=== PATIENT | male | born 1970 ===

== ENCOUNTER 2018-03-07 16:08 | Emergency (ER) | payer BC ==
[2018-03-07] MEDS ORDERED: Tetan/Diph/Pertus SYR(Tdap)* 0.5 ML SYR(BOOSTRIX) use SYR IM ONE (17:50)
[2018-03-07 17:57] LABS: ABS Basophils 0.1 10^3/ul (0-0.2); ABS Eosinophils 0.1 10^3/ul (0-0.6); ABS Lymphocytes 1.8 10^3/ul (1.0-4.8); ABS Monocytes 0.5 10^3/ul (0-0.8); ABS Neutrophils 7.6 10^3/ul (1.5-7.7); ABS Nucleated RBC 0 10^3/ul; Eosinophil % 0.7 % (0-6); Hematocrit 45 % (42-52); Hemoglobin 15.6 g/dl (14.0-18.0); Lymphocyte % 18.1 % (25-47); Mean Corpuscular HGB Conc 35 g/dl (31-36); Mean Corpuscular Hemoglobin 31 pg (27-31); Mean Corpuscular Volume 89 fL (80-94); Mean Platelet Volume 7.4 um3 (7.4-10.4); Nucleated Red Blood Cells % 0; Platelet Count 262 10^3/ul (150-450); Red Blood Count 5.02 10^6/ul (4.00-5.40); Red Cell Distribution Width 13 % (10.5-15)
[2018-03-07 18:10] LABS: EGFR Non-African American 76.5 (>60)
--- NOTE | 2018-03-07 18:43 | ED ---
- HPI Summary HPI Summary: 47 year old male presents with potential needlestick exposure today. He states he is clean area an airBNB and there was a needle on the floor. He states he did not realize is needle and threw it down the stairs. He states he went to pick it up and it broke in half and it stabbed him in his left palm. He states it did not draw blood. He states it was an insulin needle. He states there was no blood drawn after he got struck. He was unsure if there was blood previous on the bevel. He has no medical conditions. - History of Current Complaint Chief Complaint: EDExposureBodyFluid Stated Complaint: EXPOSURE Time Seen by Provider: 03/07/18 17:30 PMH/Surg Hx/FS Hx/Imm Hx Endocrine/Hematology History: Denies: Hx Anticoagulant Therapy, Hx Diabetes, Hx Thyroid Disease Cardiovascular History: Denies: Hx Congestive Heart Failure, Hx Deep Vein Thrombosis, Hx Hypertension , Hx Myocardial Infarction, Hx Pacemaker/ICD Respiratory History: Denies: Hx Asthma, Hx Chronic Obstructive Pulmonary Disease (COPD), Hx Lung Cancer, Hx Pneumonia, Hx Pulmonary Embolism GI History: Denies: Hx Gall Bladder Disease, Hx Gastrointestinal Bleed, Hx Ulcer, Hx Urosepsis History: Denies: Hx Kidney Stones, Hx Renal Disease Neurological History: Denies: Hx Dementia, Hx Migraine, Hx Seizures, Hx Transient Ischemic Attacks (TIA) Psychiatric History: Denies: Hx Anxiety, Hx Depression, Hx Schizophrenia, Hx Bipolar Disorder Infectious Disease History: No Infectious Disease History: Reports: Hx Shingles Denies: Traveled Outside the [place] in Last 30 Days - Family History Known Family History: Positive: Hypertension Negative: Cardiac Disease - Social History Alcohol Use: Occasionally Substance Use Type: Reports: None Smoking Status (MU): Never Smoked Tobacco Review of Systems Negative: Fever Negative: Chest Pain Negative: Shortness Of Breath Positive: Other - needlesick injury All Other Systems Reviewed And Are Negative: Yes Physical Exam Triage Information Reviewed: Yes Vital Signs On Initial Exam: Initial Vitals Temp Pulse Resp BP Pulse Ox 97.6 F 103 16 152/88 97 03/07/18 16:15 03/07/18 16:15 03/07/18 16:15 03/07/18 16:15 03/07/18 16:15 Vital Signs Reviewed: Yes Appearance: Positive: Well-Appearing Skin: Positive: Other - pinpoint area of redness on left palm Head/Face: Positive: Normal Head/Face Inspection Eyes: Positive: Normal, Conjunctiva Clear ENT: Positive: Pharynx normal Respiratory/Lung Sounds: Positive: Clear to Auscultation, Breath Sounds Present Cardiovascular: Positive: Normal, RRR Musculoskeletal: Positive: Normal Neurological: Positive: Normal Psychiatric: Positive: Normal Diagnostics - Vital Signs Vital Signs Temp Pulse Resp BP Pulse Ox 03/07/18 16:15 97.6 F 103 16 152/88 97 - Laboratory Lab Results: Lab Results 03/07/18 03/07/18 Range/Units 17:48 17:48 WBC 10.0 (3.5-10.8) 10^3/ul RBC 5.02 (4.00-5.40) 10^6/ul Hgb 15.6 (14.0-18.0) g/dl Hct 45 (42-52) % MCV 89 (80-94) fL MCH 31 (27-31) pg MCHC 35 (31-36) g/dl RDW 13 (10.5-15) % Plt Count 262 (150-450) 10^3/ul MPV 7.4 (7.4-10.4) um3 Neut % (Auto) 75.4 (38-83) % Lymph % (Auto) 18.1 L (25-47) % Divide % (Auto) 5.2 (0-7) % Eos % (Auto) 0.7 (0-6) % Baso % (Auto) 0.6 (0-2) % Absolute Neuts (auto) 7.6 (1.5-7.7) 10^3/ul Absolute Lymphs (auto) 1.8 (1.0-4.8) 10^3/ul Absolute Monos (auto) 0.5 (0-0.8) 10^3/ul Absolute Eos (auto) 0.1 (0-0.6) 10^3/ul Absolute Basos (auto) 0.1 (0-0.2) 10^3/ul Absolute Nucleated RBC 0 10^3/ul Nucleated RBC % 0 Sodium 137 (135-145) mmol/L Potassium 3.9 (3.5-5.0) mmol/L Chloride 102 (101-111) mmol/L Carbon Dioxide 27 (22-32) mmol/L Anion Gap 8 (2-11) mmol/L BUN 11 (6-24) mg/dL Creatinine 1.04 (0.67-1.17) mg/dL Est GFR ( Amer) 92.6 (>60) Est GFR (Non-Af Amer) 76.5 (>60) BUN/Creatinine Ratio 10.6 (8-20) Glucose 124 H (70-100) mg/dL Calcium 9.3 (8.6-10.3) mg/dL Total Bilirubin 0.60 (0.2-1.0) mg/dL AST 23 (13-39) U/L ALT 37 (7-52) U/L Alkaline Phosphatase 60 (34-104) U/L Total Protein 7.1 (6.4-8.9) g/dL Albumin 4.8 (3.2-5.2) g/dL Globulin 2.3 (2-4) g/dL Albumin/Globulin Ratio 2.1 (1-3) Result Diagrams: 03/07/18 17:48 03/07/18 17:48 Lab Statement: Any lab studies that have been ordered have been reviewed, and results considered in the medical decision making process. Needlestick Course/Dx - Course Course Of Treatment: 47 year old male presents with potential needlestick exposure today. He states he is clean area an airBNB and there was a needle on the floor. He states he did not realize is needle and threw it down the stairs. He states he went to pick it up and it broke in half and it stabbed him in his left palm. He states it did not draw blood. He states it was an insulin needle. He states there was no blood drawn after he got struck. He was unsure if there was blood previously on the bevel. He has no medical conditions. On exam has pinpoint lefion to left palm. got baseline labs. Discussed risk of HIV very low. Patient agrees will not start PEP. Patient understands agrees with plan. - Diagnoses Provider Diagnoses: Needlestick injury accident Discharge - Sign-Out/Discharge Documenting (check all that apply): Patient Departure - Discharge Plan Condition: Good Disposition: HOME Referrals: Alex Saab MD [Primary Care Provider] - Additional Instructions: Follow up with primary in 6 months Return to ED if develop any new or worsening symptoms - Billing Disposition and Condition Condition: GOOD Disposition: Home
[2018-03-07 18:59] VITALS: BP 113/75
== END 2018-03-07 18:58 | disposition home or self-care (01) ==
LOC: ED 16:08
DX: Z77.21 Contact with and (suspected) exposure to potentially hazardous body fluids (principal); W46.1XXA Contact with contaminated hypodermic needle, initial encounter
CPT/HCPCS: 36415; 80053; 85025; 86703; 86706; 86803; 87340; 90471; 90715; 99282